=== PATIENT | female | born 1985 | race Caucasian/White ===

== ENCOUNTER 2018-06-22 03:25 | Emergency (ER) | payer SELFPAY ==
[~2018-06-22] VITALS: Ht 152.4 cm; Wt 54.5 kg
[2018-06-22 03:27] VITALS: BP 101/57; Ht 152.4 cm; Wt 54.5 kg
[2018-06-22] MEDS ORDERED: KLONOPIN1 MG PO (03:29)
[2018-06-22] MEDS ORDERED: OXYCONTIN15 MG PO (03:29)
== END 2018-06-22 04:15 | disposition left against medical advice (07) ==
LOC: D.ER 03:25
DX: S40.021A Contusion of right upper arm, initial encounter (principal); Y04.2XXA Assault by strike against or bumped into by another person, initial encounter; Y93.89 Activity, other specified; Y92.89 Other specified places as the place of occurrence of the external cause; S90.812A Abrasion, left foot, initial encounter; F17.200 Nicotine dependence, unspecified, uncomplicated